=== PATIENT | male | born 1970 | race Caucasian/White ===

== ENCOUNTER 2020-01-07 10:16 | Outpatient (CLI) | payer BC, SELFPAY ==
[2020-01-08 13:59] LABS: SARS-CoV-2 RNA PCR Positive
== END 2020-01-07 10:17 | disposition home or self-care (01) ==
LOC: CHSLAB 10:18
PROVIDERS: PCP Physician Assistant; Visit Provider Physician Assistant
DX: U07.1 COVID-19 (principal)
CPT/HCPCS: 87635; C9803; U0003

== ENCOUNTER 2020-06-22 15:55 | Outpatient (CLI) | payer BC, SELFPAY ==
--- NOTE | 2020-06-22 16:15 | ECG_ITS ---
Measurements Intervals [place] Rate: 66 P: 12 [place]: 177 QRS: -34 QRSD: 93 T: 14 QT: 386 QTc: 404 Interpretive Statements SINUS RHYTHM LEFT AXIS DEVIATION BASELINE ARTIFACT- I, II, AVR BORDERLINE ECG Electronically Signed On 06-22-2020 18:43:29 CDT by Collins Lacey D.O.
== END 2020-06-22 15:56 | disposition home or self-care (01) ==
LOC: ANHCARD 15:59
PROVIDERS: PCP Internal Medicine; Visit Provider Physician Assistant
DX: I49.9 Cardiac arrhythmia, unspecified (principal)
CPT/HCPCS: 93005